=== PATIENT | female | born 1950 | race Caucasian/White ===

== ENCOUNTER → 2021-09-18 | Day surgery (SDC) | payer OTHER ==
[~2021-09-18] VITALS: Ht 160 cm; Wt 58.5 kg
[~2021-09-18] MED LIST: ACYCLOVIR 200200 MG PO; ADVIL200 M3 PO; ALENDRONATE SOD70 MG PO; CALCIUM 500 +1 EAC6 PO; GUAIFENESIN400 MG PO; NASAL DECONGEST10 MG PO; ROSUVASTATIN CAL5 MG PO; ZOLOFT 50 MG TA50 MG PO
[2021-09-18 07:40] VITALS: BP 138/76
--- NOTE | 2021-09-22 06:20 | O ---
[facility] [place] [address] OPERATIVE REPORT Name: FREDDY GODINEZ Room #: REG [facility].#: [id number] Admission: 09/18/21 Attend Phys: Yadiel Blevins MD Discharge: Date of : 48 Report #: [id number] THIS REPORT FOR: cc: Brian Guadarrama MD, Eric K. MD White,Yadiel Leary MD ~ cc: Brian Guadarrama MD DATE OF SERVICE: 09/18/2021 APPLICATION PACKAGING SPECIALIST: None. PREOPERATIVE DIAGNOSIS: Unilateral left upper lid ptosis. POSTOPERATIVE DIAGNOSIS: Unilateral left upper lid ptosis. OPERATION PERFORMED: Unilateral left upper lid ptosis repair. ANESTHESIA: Local anesthesia with IV sedation. COMPLICATIONS: None. INDICATIONS FOR SURGERY: This patient has left upper lid ptosis with superior visual field loss. Visual field testing demonstrates dense superior visual defects. Retesting with the upper lid elevated shows an improvement in visual field loss of over 30% and in excess of 12 degrees. The current procedure is undertaken in order to improve the patient's visual function. Informed consent was obtained to include but not limited to the potential risks for bleeding, scarring, infection, loss of vision, failure to improve the problem, need for further surgery and need for adjustment of lid height. DESCRIPTION OF PROCEDURE: The patient was taken to the operating room, where a left upper lid crease was drawn with a skin marking pen. The incision was then made with Diego scissors and dissected down to the orbital septum. Hemostasis was achieved with a monopolar cautery as it was throughout the case. The orbital septum was then entered and the preaponeurotic fat identified. The levator aponeurosis was then disinserted from the anterior surface of the tarsal plate and dissected free in the avascular Lopez's muscle plane. The aponeurosis was then advanced onto the anterior surface of the tarsal plate and reattached with mattress double-arm 6-0 Novafil sutures, adjusting for height and contour. The redundant aponeurosis was then amputated. The upper lid crease was then reformed with interrupted 6-0 chromic sutures. The skin was closed with interrupted 6-0 plain gut suture. The wound was then cleaned and dressed with ophthalmic antibiotic ointment. [address] [address] OPERATIVE REPORT Name: FREDDY GODINEZ Room #: [facility]..#: [id number] Admission: 09/18/21 Attend Phys: Yadiel Blevins MD Discharge: Date of : 48 Report #: [id number] The patient was then transported to the recovery area, having tolerated the procedure well with no anesthesia or operative complications being noted. <ELECTRONICALLY SIGNED> By: Yadiel Blevins MD 09/22/21 0620 [id number] Yadiel Blevins MD /nt
== END | disposition home or self-care (01) ==
LOC: OR 06:25
PROVIDERS: ATTEND Ophthalmology
DX: H02.412 Mechanical ptosis of left eyelid (principal); E78.00 Pure hypercholesterolemia, unspecified; F32.9 Major depressive disorder, single episode, unspecified; M81.0 Age-related osteoporosis without current pathological fracture; Z98.890 Other specified postprocedural states; Z79.899 Other long term (current) drug therapy; Z20.822 Contact with and (suspected) exposure to COVID-19; Z98.41 Cataract extraction status, right eye; Z98.42 Cataract extraction status, left eye
CPT/HCPCS: 50010; 50101; 50386; 50398; 51636; 56528; 56531; 62110; 62850; 70005